=== PATIENT | female | born 1995 | race Two or more races ===

== ENCOUNTER 2021-05-01 03:26 | Emergency (ER) | payer OTHER ==
[~2021-05-01] VITALS: Ht 167.6 cm; Wt 68.0 kg
[2021-05-01 03:29] VITALS: BP 155/92
[2021-05-01] MEDS ORDERED: LORazepam 2MG/ML-1ML VIAL ONE (03:40)
[2021-05-01] MEDS ORDERED: diphenhdrAMINE HCL 50 MG/1 ML VL ONE (03:40)
== END 2021-05-01 04:23 ==
LOC: ER 03:26 → EDBD 03:26 → ER 04:23
DX: R44.0 Auditory hallucinations (principal)
CPT/HCPCS: 99283; J1200; J2060